=== PATIENT | male | born 1945 | race Caucasian/White ===

== ENCOUNTER 2023-09-24 08:48 | Emergency (ER) | payer OTHER, SELFPAY ==
[2023-09-24 08:49] VITALS: BMI 27.4
[2023-09-24 08:50] VITALS: BP 134/77
--- NOTE | 2023-09-24 10:12 | ED.GENMED ---
History of Present Illness
General
Chief Complaint: Abdominal Symptoms
Source: patient
Exam Limitations: none
Time Seen by Provider: 09/24/23 09:37
Nursing documentation reviewed up to this point in time: agreed with
Travel History
Have you had any contact with someone who has COVID-19?: No
Do you have any symptoms of coronavirus? Fever > 100 degrees, chills, cough, shortness of breath, sore throat, loss of taste or smell, muscle aches, or headache?: No
History of Present Illness
History of Present Illness:
78 y/o M with h/o CAD
h/o c diff last year after abx use, treated with flagyl 1 roudn and cleared
here with 2 epiosdes explosive diarrhea since yesterday reminding him of his c diff history
he had been taking cefdinir bid x 5 days (out of 7) for URI sxs
pt asys he stopped taking the abx yesterday when the diarrhea started
he took a dose of OTC antidiarrhea med earlier yesterdcay
he says he hasn't had an appetite or feeling thirsty so he hasn't been drinking
some subjective chills
no abdominal pain, rectal bleeding, vomiting.
Past History
Past History
ED Past Medical History: CAD, HTN and Hypercholesterolemia
ED Past Surgical History: Cardiac (Cardiac catheterization)
Social History
Tobacco: Former smoker
Alcohol: None
Drug: None
Personal:
Living: with family
Employment: Retired
Review of Systems
Review of Systems
Allergies reviewed?: Yes
All Other Systems: Not applicable
Phy Exam
Physical Exam
Physical Exam:
GENERAL: Alert , in no apparent distress
EYE: pupils equal and reactive
NECK: Supple
ENT: o/p clr, mmm.
CARDIAC: Regular rate and rhythm .
LUNGS: Clear breath sounds bilaterally, no acute respiratory distress, no wheezes/rales/rhonchi, occasional cough
ABDOMEN: Soft, without focal tenderness, no r/g, no cvat, normal bowel sounds
NEUROLOGICAL: Alert and oriented, no focal neuro deficits
SKIN: Warm and dry, skin intact.
MUSCULOSKELETAL: No edema, well perfused. neg shy's sign
PSYCH: Normal and appropriate interaction.
Course
Orders/Labs/Results
Orders:
Orders
09/24/23 10:08
0.9% Sodium Chloride 1000 ml [Nss] 1,000 ml IV BOLUS
09/24/23 10:45
Complete Blood Count/With Diff Urgent
Comprehensive Metabolic Panel Urgent
Lactic Acid Urgent
Magnesium Urgent
09/24/23 10:48
C DIFF [C difficile Antigen & Toxins] Urgent
PETRONA Source: Feces/Stool
Specimen Description:
Date Specimen was Collected: 09/24/23
Time Specimen was Collected: 10:43
Stool Culture Urgent
PETRONA Source: Feces/Stool
Specimen Description:
Date Specimen was Collected: 09/24/23
Time Specimen was Collected: 10:43
09/24/23 13:45
CR Chest - 2 Views Urgent
Comment:
Reason For Exam: cough
09/24/23 13:51
Vancomycin HCl [Firvanq] 125 mg PO NOW STA
Abnormal Lab Results
09/24/23
10:45
RBC 4.49 L 10^6/uL
(4.70-6.10)
MCH 31.6 H pg
(27.0-31.0)
Abs Immat Gran (auto) 0.1 H 10^3/uL
(0-0.05)
Absolute Neuts (auto) 8.5 H 10^3/uL
(1.4-6.5)
Absolute Lymphs (auto) 0.9 L 10^3/uL
(1.2-3.4)
Absolute Monos (auto) 0.9 H 10^3/uL
(0.1-0.6)
Neutrophils % 81.3 H %
(42.2-75.2)
Lymphocytes % 8.2 L %
(20.5-51.1)
Sodium 134 L mmol/L
(135-145)
Glucose 113 H mg/dl
(70-99)
Alkaline Phosphatase 171 H U/L
(38-126)
09/24/23 10:45
09/24/23 10:45
Vital Signs
Initial and Last Documented VS:
Initial Vital Signs
Temp Pulse Resp BP Pulse Ox
98.1 F 80 18 134/77 97
09/24/23 08:50 09/24/23 08:50 09/24/23 08:50 09/24/23 08:50 09/24/23 08:50
Last Documented Vital Signs
Temp Pulse Resp BP Pulse Ox
98.1 F 71 28 133/70 98
09/24/23 08:50 09/24/23 14:00 09/24/23 14:00 09/24/23 14:00 09/24/23 14:00
MDM/Problems Addressed
Differential Diagnosis Includes:
C. difficile, gastroenteritis, pneumonia
MDM/Problems Addressed:
78-year-old male with a history of C. difficile last year presents for diarrhea x 2 episodes since yesterday after being on 5 days of cefdinir for suspected sinus infection or bronchitis. Patient said he had a couple weeks of this cough brings up
some sputum and so his family doctor did prescribe cefdinir. He started having the diarrhea yesterday with 1 episode that was pretty explosive and then today had another 1. Patient says it reminds him of the C. difficile that he had last year. He
resolved with 10 days of Flagyl.
He has no residual abdominal pain, fevers or chills. He does have a dry cough here. On exam the patient had an occasional cough with a wheeze that cleared. There were no rales. His abdomen was soft and nontender. Patient was able to eventually
provide a stool sample, he only had 1 episode here which did test positive for C. difficile. Patient's electrolytes were otherwise okay. His white count is okay. He feels comfortable going home at and wants to try oral vancomycin this time as
this was a recurrent episode. I did do a chest x-ray to rule out pneumonia which was clear and independently reviewed by me. Offered patient albuterol as needed for wheezing, he did use to smoke. He will use otherwise [id number]-[id number] medications
for his cough
*Critical Care Note
Total Time (30-74mins, 75-104mins- exclusive of procedures): Not Applicable
ED Attending Note
-
Portions of this chart may have been created with voice recognition software.� Occasional wrong word or��sound alike� substitutions may have occurred due to the inherent limitations of voice recognition software.
Discharge Plan
Departure
Patient Disposition: Home (Routine Discharge)
Date of Disposition: 09/24/23
Time of Disposition: 14:35
Patient with high blood pressure during this ER visit?: No
Condition: Fair
Covid-19: Not Applicable
Discharge Problem:
C. difficile diarrhea
Instructions: Clostridioides difficile (DC)
Prescriptions:
New
vancomycin 125 mg capsule
125 mg PO QID Qty: 40 0RF
albuterol sulfate [Ventolin HFA] 90 mcg/actuation HFA aerosol inhaler
2 puff inhalation Q6H PRN (Reason: shortness of breath or wheezing) Qty: 6.7 0RF
No Action
amlodipine 2.5 MG tablet
2.5 mg PO DAILY
rosuvastatin [Crestor] 40 MG tablet
40 mg PO DAILY
nebivolol 2.5 MG tablet
2.5 mg PO DAILY
ticagrelor [Brilinta] 90 MG tablet
90 mg PO BID
multivitamin with folic acid [Tab-A-Martha] 1 TABLET tablet
1 tab PO DAILY
sennosides [senna] 1 TABLET tablet
2 tab PO BID 0RF
acetaminophen 325 MG tablet
650 mg PO Q4HPRN PRN (Reason: for mild pain or fever >100.4F) 0RF
aspirin 81 MG tablet,delayed release (DR/EC)
81 mg PO DAILY 0RF
magnesium hydroxide 30 ML suspension
30 ml PO DAILYPRN PRN (Reason: constipation) 0RF
docusate sodium 100 MG capsule
100 mg PO BID 0RF
oxycodone 5 MG tablet
1 - 2 tab PO Q4HPRN PRN (Reason: moderate pain) Qty: 80 0RF
tramadol 50 MG tablet
50 mg PO QID Qty: 80 0RF
Rx Instructions:
take 1 tab 4 x day x 7 days then every 4h as needed for pain
bisacodyl 5 MG tablet,delayed release (DR/EC)
10 mg PO DAILYPRN PRN (Reason: constipation ) Qty: 1 0RF
levofloxacin 500 MG tablet
500 mg PO DAILY Qty: 6 0RF
Referrals:
Marcelino Dougherty MD [Family Provider] - Follow up in 2-3 days
Activity Restrictions/Additional Instructions:
YOU TESTED POSITIVE FOR C DIFF
THIS IS VERY CONTAGIOUS
MAKE SURE TO ONLY USE 1 BATHROOM IN YOUR HOUSE AND WIPE WITH BLEACH TO CLEAN
TAKE VANCOMYCIN 1 TAB 4 TIMES A DAY FOR 10 DAYS
IF YOU ARE STILL HAVING DIARRHEA PLEASE SEE YOUR DOCTOR
STAY HYDRATED
RETURN FOR: SEVERE PAIN, FEVER, VOMITNIG, BLOODY STOOL, DEHYDERATION OR ANY CONCERNS.
YOUR CHEST XRAY SHOWED NO PNEUMONIA
YOU CAN TRY OVER THE COUTNER COUGH MEDICATION NEEDED FOR COUGH.
Interventions
Interventions:
*Risk Screen - Suicide Last Done: 09/24/23 08:55
*General Assessment Last Done: 09/24/23 08:55
*Neglect/Abuse Screening Last Done: 09/24/23 08:55
ED- Fall Risk Assessment Last Done: 09/24/23 11:22
*ED COVID-19 Vaccine History Last Done: 09/24/23 11:22
*Nursing Disposition Last Done: 09/24/23 15:30
QY-Cmcnzl-Earvyelsvq Assessment Last Done: 09/24/23 11:22
Discharge Date and Time
Discharge Date/Time: 09/24/23 15:32
Print Language: KAZAKH
[2023-09-24] MEDS: NSS 1000 IV (10:57)
[2023-09-24 11:00] VITALS: BP 130/78
[2023-09-24 11:07] LABS: % Basophils 0.7 % (0-2); % Eosinophils 0.8 % (0-6); % Immature Granulocytes 0.5 % (0-0.5); % Lymphocytes 8.2 % (20.5-51.1); % Monocytes 8.5 % (1.7-9.3); % Neutrophils 81.3 % (42.2-75.2); Absolute Basophils 0.1 10^3/uL (0-0.2); Absolute Eosinophils 0.1 10^3/uL (0-0.7); Absolute Immature Granulocytes 0.1 10^3/uL (0-0.05); Absolute Lymphocytes 0.9 10^3/uL (1.2-3.4); Absolute Monocytes 0.9 10^3/uL (0.1-0.6); Absolute Neutrophils 8.5 10^3/uL (1.4-6.5); Hematocrit 40.3 % (39.0-52.0); Hemoglobin 14.2 g/dL (13.0-18.0); Mean Corp Hgb Conc. 35.2 g/dL (33.0-37.0); Mean Corpuscular Hgb 31.6 pg (27.0-31.0); Mean Corpuscular Volume 89.8 fL (80.0-94.0); Mean Platelet Volume 8.3 fL (7.4-10.4); Nucleated Red Blood Cells % 0 % (-); Platelet Count 243 10^3/uL (130-400); Red Blood Cell Count 4.49 10^6/uL (4.70-6.10); Red Cell Dist. Width 12.4 % (11.5-14.5); White Blood Cell Count 10.5 10^3/uL (4.8-10.8)
[2023-09-24 11:34] LABS: Lactic Acid 1.2 mmol/L (0.7-2.0)
[2023-09-24 11:36] LABS: ALT (SGPT) 26 U/L (0-50); AST (SGOT) 28 U/L (17-59); Albumin 4.1 g/dl (3.5-5.0); Alkaline Phosphatase 171 U/L (38-126); Blood Urea Nitrogen 19 mg/dl (9-20); Calcium 9.3 mg/dl (8.4-10.2); Carbon Dioxide 22 mmol/L (22-30); Chloride 102 mmol/L (98-107); Estimated Creatinine Clearance 72 ml/min; Glucose 113 mg/dl (70-99); Magnesium 2.2 mg/dl (1.6-2.3); Potassium 3.7 mmol/L (3.5-5.1); Sodium 134 mmol/L (135-145); Total Bilirubin 0.7 mg/dl (0.2-1.3); Total Protein 6.8 g/dl (6.3-8.2); eGFR > 60.00
[2023-09-24 12:00] VITALS: BP 129/69
[2023-09-24 13:00] VITALS: BP 120/70
[2023-09-24 14:00] VITALS: BP 133/70
[2023-09-24] MEDS: FIRVANQ 125 MG PO (14:57)
== END 2023-09-24 15:32 | disposition home or self-care (01) ==
LOC: EMR 08:48
PROVIDERS: Physician Assistant; EMERGENCY PHYSICIAN Emergency Medicine; FAMILY PHYSICIAN Internal Medicine
DX: A04.72 Enterocolitis due to Clostridium difficile, not specified as recurrent (principal); R19.7 Diarrhea, unspecified; R05.9 Cough, unspecified; R06.2 Wheezing; I25.10 Atherosclerotic heart disease of native coronary artery without angina pectoris; I10 Essential (primary) hypertension; E78.00 Pure hypercholesterolemia, unspecified; Z87.891 Personal history of nicotine dependence; Z79.82 Long term (current) use of aspirin
CPT/HCPCS: 99284; 96360; 71046; 80053; 83605; 83735; 85025; 87045; 87046; 87324; 87427; 87449

== ENCOUNTER 2023-10-15 08:43 | Emergency (ER) | payer OTHER, MEDICARE, SELFPAY ==
[2023-10-15] VITALS (7 sets, daily range): BP systolic 99–143; BP diastolic 61–90; BMI 26.2
[2023-10-15 09:39] LABS: % Basophils 0.5 % (0-2); % Eosinophils 5.3 % (0-6); % Immature Granulocytes 0.3 % (0-0.5); % Lymphocytes 8.7 % (20.5-51.1); % Monocytes 10.3 % (1.7-9.3); % Neutrophils 74.9 % (42.2-75.2); Absolute Basophils 0.1 10^3/uL (0-0.2); Absolute Eosinophils 0.5 10^3/uL (0-0.7); Absolute Lymphocytes 0.8 10^3/uL (1.2-3.4); Absolute Monocytes 0.9 10^3/uL (0.1-0.6); Absolute Neutrophils 6.9 10^3/uL (1.4-6.5); Hematocrit 36.7 % (39.0-52.0); Mean Corp Hgb Conc. 35.4 g/dL (33.0-37.0); Mean Corpuscular Hgb 32.1 pg (27.0-31.0); Mean Corpuscular Volume 90.6 fL (80.0-94.0); Mean Platelet Volume 8.8 fL (7.4-10.4); Nucleated Red Blood Cells % 0 % (-); Platelet Count 188 10^3/uL (130-400); Red Blood Cell Count 4.05 10^6/uL (4.70-6.10); White Blood Cell Count 9.2 10^3/uL (4.8-10.8)
[2023-10-15] MEDS: NSS 1000 IV (09:39)
[2023-10-15 09:58] LABS: ALT (SGPT) 20 U/L (0-50); AST (SGOT) 25 U/L (17-59); Albumin 3.7 g/dl (3.5-5.0); Alkaline Phosphatase 135 U/L (38-126); Blood Urea Nitrogen 14 mg/dl (9-20); Calcium 8.6 mg/dl (8.4-10.2); Carbon Dioxide 21 mmol/L (22-30); Chloride 103 mmol/L (98-107); Estimated Creatinine Clearance 93 ml/min; Glucose 137 mg/dl (70-99); Potassium 3.6 mmol/L (3.5-5.1); Sodium 132 mmol/L (135-145); Total Bilirubin 0.8 mg/dl (0.2-1.3); Total Protein 6.2 g/dl (6.3-8.2); eGFR > 60.00
--- NOTE | 2023-10-15 10:12 | ED.GENMED ---
History of Present Illness
General
Chief Complaint: Abdominal Symptoms
Source: patient
Exam Limitations: none
Time Seen by Provider: 10/15/23 09:02
Nursing documentation reviewed up to this point in time: agreed with
Travel History
Have you had any contact with someone who has COVID-19?: No
Do you have any symptoms of coronavirus? Fever > 100 degrees, chills, cough, shortness of breath, sore throat, loss of taste or smell, muscle aches, or headache?: No
History of Present Illness
History of Present Illness:
Patient is a 78-year-old male who presents to the ER for evaluation. Patient was seen here September 23 for diarrhea and diagnosed with C. difficile. He completed vancomycin for 8 then stopped it symptoms improved however 4 days ago it started again.
Did have leftover vancomycin and started took 4 doses today of vancomycin Sunday took 3 doses and presented here to the ER for persistent diarrhea. He reports having 3-4 episodes of diarrhea per day but feels very weak and tired and wiped out. He
has no appetite and also not eating or drinking well. He denies any abdominal pain fever chills.
Past History
Past History
ED Past Medical History: CAD, HTN and Hypercholesterolemia
ED Past Surgical History: Cardiac (Cardiac catheterization)
Social History
Tobacco: Former smoker
Alcohol: None
Drug: None
Personal:
Living: with family
Employment: Retired
Review of Systems
Review of Systems
Allergies reviewed?: Yes
All Other Systems: ROS reviewed and negative except as documented in HPI and ROS
Constitutional: Reports fatigue; Denies fever or chills
EENT: Reports no symptoms
Respiratory: Reports no symptoms
ABD/GI: Reports diarrhea; Denies abdominal pain, nausea or vomiting
: Reports no symptoms
Skin: Reports no symptoms
Phy Exam
General Physical Exam
General Presentation: no apparent distress
General age: appears stated age
General Skin: warm and dry
General Habitus: normal
General Mental: alert
General Hydration: dry mucous membranes
Cardiovascular Exam
Cardiovascular Exam: regular rate/rhythm, no murmur and normal peripheral pulses
Pulmonary Exam
Pulmonary Exam: lungs clear and no respiratory distress
Neurological Exam
Neurological Exam: alert and oriented x3
Musculoskeletal Exam
Musculoskeletal Exam: full ROM
Skin Exam
Skin Exam: normal color and warm/dry
Psychiatric Exam
Psychiatric Exam: normal mood/affect
Course
Orders/Labs/Results
Orders:
Orders
10/15/23 09:05
IV Insert/Care/Rem.- Treatment PRN
10/15/23 09:14
Complete Blood Count/With Diff Urgent
Comprehensive Metabolic Panel Urgent
0.9% Sodium Chloride 1000 ml [Nss] 1,000 ml IV BOLUS
10/15/23 11:27
Consult Infectious Disease [INFECTIOUS DISEASE CONSULT] Urgent
Consulting Provider: Julieta Smith
Was physician already notified: Yes
Reason for consult: eval /treat for c diff
10/15/23 12:30
Vancomycin HCl [Firvanq] 125 mg PO Q6
10/15/23 12:50
C DIFF [C difficile Antigen & Toxins] Stat
PETRONA Source: Feces/Stool
Specimen Description:
Date Specimen was Collected: 10/15/23
Time Specimen was Collected: 12:48
Abnormal Lab Results
10/15/23
09:14
RBC 4.05 L 10^6/uL
(4.70-6.10)
Hct 36.7 L %
(39.0-52.0)
MCH 32.1 H pg
(27.0-31.0)
Absolute Neuts (auto) 6.9 H 10^3/uL
(1.4-6.5)
Absolute Lymphs (auto) 0.8 L 10^3/uL
(1.2-3.4)
Absolute Monos (auto) 0.9 H 10^3/uL
(0.1-0.6)
Lymphocytes % 8.7 L %
(20.5-51.1)
Monocytes % 10.3 H %
(1.7-9.3)
Sodium 132 L mmol/L
(135-145)
Carbon Dioxide 21 L mmol/L
(22-30)
Glucose 137 H mg/dl
(70-99)
Alkaline Phosphatase 135 H U/L
(38-126)
Total Protein 6.2 L g/dl
(6.3-8.2)
10/15/23 09:14
10/15/23 09:14
Vital Signs
Initial and Last Documented VS:
Initial Vital Signs
Temp Pulse Resp BP Pulse Ox
99.0 F 91 16 143/90 98
10/15/23 08:52 10/15/23 08:52 10/15/23 08:52 10/15/23 08:52 10/15/23 08:52
Last Documented Vital Signs
Temp Pulse Resp BP Pulse Ox
99.0 F 71 16 119/72 99
10/15/23 08:52 10/15/23 14:00 10/15/23 14:00 10/15/23 14:00 10/15/23 14:00
Market Research Intern consulted with Physician
Market Research Intern consulted with physician?: Yes
Name of Physician Consulted: Dexter
MDM/Problems Addressed
Differential Diagnosis Includes:
Not limited to diarrhea C. difficile dehydration electrolyte abnormality
MDM/Problems Addressed:
Patient is a 70-year-old male who was seen here September 23 diagnosed with C. difficile completed 8 days of vancomycin symptoms improved. Symptoms restarted again 3 days ago . He had leftover vancomycin at home he took 4 doses Sunday, 3
doses yesterday none today. He complains today of feeling very fatigued and weak which is a prompted him to come to the ER. He presents awake alert no acute distress no complaints abdominal pain abdomen soft nontender appears mildly dry on
exam.pt was given fluids. Labs checked and unremarkable.
Patient was evaluated by infectious disease stool specimen positive for C. difficile and patient was treated with vancomycin sent as an outpatient.
*Pulse Oximetry
Patient hypoxic: no
*Critical Care Note
Total Time (30-74mins, 75-104mins- exclusive of procedures): Not Applicable
Patient Management
Discussion with other providers: Electric Lift Truck Driver (Infectious disease)
ED Attending Note
-
Portions of this chart may have been created with voice recognition software.� Occasional wrong word or��sound alike� substitutions may have occurred due to the inherent limitations of voice recognition software.
Discharge Plan
Departure
Patient Disposition: Home (Routine Discharge)
Date of Disposition: 10/15/23
Time of Disposition: 14:35
Patient with high blood pressure during this ER visit?: Yes
Condition: Fair
Covid-19: Not Applicable
Discharge Problem:
C. difficile diarrhea
Prescriptions:
New
vancomycin [Vancocin] 125 mg capsule
125 mg PO QID Qty: 40 0RF
No Action
amlodipine 2.5 MG tablet
2.5 mg PO DAILY
rosuvastatin [Crestor] 40 MG tablet
40 mg PO DAILY
acetaminophen 325 MG tablet
650 mg PO Q4HPRN PRN (Reason: for mild pain or fever >100.4F) 0RF
trazodone 50 mg Tablet
50 mg PO HS
loperamide 2 mg Tablet
2 mg PO Q4HPRN PRN (Reason: diarrhea)
metoprolol succinate [Toprol XL] 25 mg Tablet Extended Release 24 Hr
25 mg PO DAILY
Referrals:
Marcelino Dougherty MD [Family Provider] -
Julieta Smith MD [Active] -
Activity Restrictions/Additional Instructions:
As discussed a prescription for vancomycin was sent to your pharmacy. You may stop loperamide and take probiotics if you wish. You can eat what ever you would like when your appetite comes back it is recommended that you resume eating fruits and
vegetables and increase fluid with some salt sugar such as broth and Pedialyte. Follow-up with your family doctor next several days as well as following up with infectious disease.
Return if any worsening of symptoms of lightheaded dizziness abdominal pain fever chills
Interventions
Interventions:
*Risk Screen - Suicide Last Done: 10/15/23 09:20
*General Assessment Last Done: 10/15/23 09:20
*Neglect/Abuse Screening Last Done: 10/15/23 09:20
ED- Fall Risk Assessment Last Done: 10/15/23 09:20
*ED COVID-19 Vaccine History Last Done: 10/15/23 08:52
*Nursing Disposition Last Done: 10/15/23 14:42
QI-Ledcuv-Atrxkxazft Assessment Last Done: 10/15/23 09:20
Discharge Date and Time
Discharge Date/Time: 10/15/23 14:43
Print Language: PALESTINIAN
--- NOTE | 2023-10-15 11:24 | CON.ID ---
Addendum entered and electronically signed by Julieta Smith MD 10/15/23 15:37:
C diff remains positive, will proceed with requesting vowst
Original Note:
Consultation
-
Date/Time Consultation Requested: 10/15/23 11:10
Date/Time Consultation Performed: 10/15/23 11:27
Requesting Provider: Leah Glass NP
Performing Provider: Dr Smith
Reason for Consultation: probable recurrent C diff
Chief Complaint / Past History
Chief Complaint
diarrhea, weakness
History of Present Illness
Mr Ward is a 78 year old male with history notable for C difficile patient report first episode was 2022 treated with metronidazole x1, then developed URI last month and started cefdinir, on 09/24/23 developed explosive diarrhea x2, poor
appetite. Diagnosed with C difficile and treated with oral vancomycin x10 days which he took x8 days. Then around 10/10 developed a relapse of diarrhea, wekaness, malaise, poor appetite. Started the left over vancomycin and then presented to the
ER. No fevers, chills or abdominal pain.
Since arrival here tmax 100.0 orally - no abram fevers, bp mildly hypotensive this AM, wbc 9.2, hgb 13, plt 188, no left shift, cr 0.7, no imaging done, C diff not yet tested this visit - C diff ag/toxin positive 09/23, ID is consulted for assistance
with management.
Past History
Additional Past Medical History:
CAD, HTN and Hypercholesterolemia
Additional Past Surgical History:
Cardiac catheterization
Allergy History:
No Known Allergies Allergy (Verified 10/15/23 08:55)
Medications Reviewed: Yes
Social History
Tobacco: Former Smoker
Alcohol: None
Drug: None
Family History
Family History: Not Pertinent
Review of Systems
Review of Systems
General: Change in Appetite; Negative Fever or Chills
All systems: All other systems were reviewed and were negative
Vital Signs
Temp Pulse Resp BP Pulse Ox
99.0 F 82 16 99/61 100
10/15/23 08:52 10/15/23 10:21 10/15/23 10:21 10/15/23 10:21 10/15/23 10:21
Physical Exam
Physical Exam
Constitutional: No Acute Distress and Non-toxic
Cardiovascular: Regular Rate and S1/S2; Negative Murmur or Rub
Pulmonary: Clear and Symmetric; Negative Wheezes, Rales or Rhonchi
Gastrointestinal: Soft, Tender (minimal diffuse tenderness), Non Distended and Other (hyperactive bowel sounds)
Skin: Warm, Dry and Other (tenting); Negative Rash or Jaundice
Lab / Diagnostic Study Results
10/15/23 09:14
10/15/23 09:14
Abs Immat Gran (auto) 0.0 10^3/uL (0-0.05) 10/15/23 09:14
Absolute Neuts (auto) 6.9 10^3/uL (1.4-6.5) H 10/15/23 09:14
Absolute Lymphs (auto) 0.8 10^3/uL (1.2-3.4) L 10/15/23 09:14
Absolute Monos (auto) 0.9 10^3/uL (0.1-0.6) H 10/15/23 09:14
Absolute Basos (auto) 0.1 10^3/uL (0-0.2) 10/15/23 09:14
Immature Gran % 0.3 % (0-0.5) 10/15/23 09:14
Neutrophils % 74.9 % (42.2-75.2) 10/15/23 09:14
Lymphocytes % 8.7 % (20.5-51.1) L 10/15/23 09:14
Monocytes % 10.3 % (1.7-9.3) H 10/15/23 09:14
Eosinophils % 5.3 % (0-6) 10/15/23 09:14
Basophils % 0.5 % (0-2) 10/15/23 09:14
Assessment / Plan
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
Dehydration
- if C diff remains positive then patient would be a candidate for oral fecal transplant
- would be 3rd episode of C difficile
- my office can assist with setting this up
- recommend retesting for C difficile now
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
- reasonable to plan to obtain testing and then discharge with a 10 day course of oral vancomycin (favor vancomycin over fidaxomicin given cost, plans for transplant)
- stop loperamide at this time, can take probiotics if he wishes
- can eat whatever he wishes, when appetite back would resume eating fruits/vegetables; would increase fluid with some salt/sugar - broth/pedialyte etc
- follow up with PCP, follow up with ID PRN
--- NOTE | 2023-10-15 11:44 | EDRN ---
Infectious disease MD in w/ pt at this time.
[2023-10-15] MEDS: FIRVANQ 125 MG PO (14:12)
== END 2023-10-15 14:43 | disposition home or self-care (01) ==
LOC: EMR 08:43
PROVIDERS: Nurse Practitioner; CONSULT PHYSICIAN Student in an Organized Health Care Education/Training Program; EMERGENCY PHYSICIAN Emergency Medicine; FAMILY PHYSICIAN Internal Medicine
DX: A04.72 Enterocolitis due to Clostridium difficile, not specified as recurrent (principal); Z87.891 Personal history of nicotine dependence
CPT/HCPCS: 99284; 96360; 80053; 85025; 87324; 87449

== ENCOUNTER → 2025-01-27 07:58 | Outpatient (REF) | payer MEDICARE, OTHER, SELFPAY | LOC: WOUND 07:58 | PROVIDERS: ATTENDING PHYSICIAN Surgery; FAMILY PHYSICIAN Internal Medicine | DX: S51.801A Unspecified open wound of right forearm, initial encounter (principal); S51.802A Unspecified open wound of left forearm, initial encounter; I25.10 Atherosclerotic heart disease of native coronary artery without angina pectoris; Z79.01 Long term (current) use of anticoagulants; Z79.52 Long term (current) use of systemic steroids; X58.XXXA Exposure to other specified factors, initial encounter | CPT/HCPCS: 99203 ==

== ENCOUNTER 2025-02-13 11:32 | Emergency (ER) | payer MEDICARE, OTHER, SELFPAY ==
[2025-02-13 11:35] VITALS: BP 168/99
[2025-02-13 12:01] VITALS: BP 155/87
[2025-02-13 12:02] VITALS: BP 155/87
--- NOTE | 2025-02-13 12:10 | ED.GENMED ---
History of Present Illness
General
Chief Complaint: Cardiac Symptoms
Source: patient
Exam Limitations: none
Time Seen by Provider: 02/13/25 11:56
Nursing documentation reviewed up to this point in time: agreed with
History of Present Illness
History of Present Illness:
79-year-old male with a past medical history of hypertension, hyperlipidemia, CAD status post CABG (October 2024, [facility] with Dr. Fernández as his primary riveter), paroxysmal A-fib (previously on Eliquis) who presents to the emergency
department for evaluation after an episode of atrial fibrillation. Patient reports that he has been doing cardiac rehab after his recent CABG. Today he was at rehab and noted to have an episode of atrial fibrillation. He says he had some
palpitations 'like a butterfly my chest' transiently but they since have resolved. He never had any chest pain, dizziness, shortness of breath. He is completely asymptomatic in the emergency room. He says that he previously had been on Eliquis
but recently was changed from Eliquis to Plavix due to issues with bruising.
Past History
Past History
ED Past Medical History: CAD, HTN and Hypercholesterolemia
ED Past Surgical History: Cardiac (Cardiac catheterization)
Social History
Tobacco: Former smoker
Alcohol: None
Drug: None
Personal:
Living: with family
Employment: Retired
Review of Systems
Review of Systems
All Other Systems: ROS reviewed and negative except as documented in HPI and ROS
Constitutional: Denies fever or chills
Respiratory: Denies trouble breathing
Cardiac: Reports palpitations; Denies chest pain or syncope
ABD/GI: Denies abdominal pain
Musculoskeletal: Denies edema
Neurological: Denies dizzy or headache
Phy Exam
Physical Exam
Physical Exam:
General: Awake, alert, oriented x3; no acute distress
Head: Normocephalic, atraumatic
Eyes: Conjunctiva normal
Throat: Airway intact, handling secretions
Neck: Trachea midline, no JVD
Lungs: Clear to auscultation bilaterally, no wheezing, rales, rhonchi
Heart: Regular rate and rhythm, no murmurs, gallops, or rubs appreciated; well-healed sternotomy scar
Neuro: Grossly intact
Extremities: No edema in extremities, equal pulses in all extremities
Scores
Heart Failure Risk
Heart Failure Risk Score: Not Applicable
Heart Score for Chest Pain Patients
STEMI patient?: Not applicable
Withdrawal Assessment of Alcohol
Withdrawal Assessment Completed?: Not applicable
Course
Orders/Labs/Results
Orders:
Orders
02/13/25 11:38
EKG [Electrocardiogram (*1)] Urgent
Reason for Study: Abnormal EKG
02/13/25 11:39
EKG- Treatment ONCE
02/13/25 12:04
EKG [Electrocardiogram (*1)] Urgent
Reason for Study: Atrial Fibrillation
EKG- Treatment ONCE
02/13/25 12:15
Basic Metabolic Panel Urgent
Complete Blood Count/No Diff Urgent
Abnormal Lab Results
02/13/25
12:15
WBC 11.1 H 10^3/uL
(4.8-10.8)
RBC 4.57 L 10^6/uL
(4.70-6.10)
Plt Count 21 L* 10^3/uL
(130-400)
Creatinine 0.6 L mg/dL
(0.7-1.3)
Glucose 110 H mg/dl
(70-99)
02/13/25 12:15
02/13/25 12:15
Vital Signs
Initial and Last Documented VS:
Initial Vital Signs
Pulse Resp BP Pulse Ox
80 20 168/99 100
02/13/25 11:35 02/13/25 11:35 02/13/25 11:35 02/13/25 11:35
Last Documented Vital Signs
Pulse Resp BP Pulse Ox
110 27 113/100 99
02/13/25 12:51 02/13/25 12:51 02/13/25 12:51 02/13/25 12:51
MDM/Problems Addressed
Differential Diagnosis Includes:
Atrial fibrillation
MDM/Problems Addressed:
79-year-old male with a history as noted presents after an episode of atrial fibrillation at rehab. He had transient palpitations but they since have resolved. His EKG here shows sinus rhythm�he appears to converted back to normal rhythm.
Hypertensive otherwise normal vitals. He was recently changed from Eliquis to Plavix in consultation with his riveter. Given this repeat episode of A-fib at rehab today I wonder if changing back to Eliquis is indicated. Will discuss with his
primary riveter regarding medication adjustments. Send off basic labs to rule out electrolyte derangement or anemia.
I spoke with the patient's riveter at [facility] about medications�it sounds like he recently had discontinued Eliquis and patient has been on aspirin and Plavix. Also apparently switched recently from metoprolol to amlodipine. His riveter
recommending that patient stop aspirin but continue Plavix and initiate treatment with Eliquis once again at a dose of 5 mg twice daily. Also recommending discontinuing amlodipine in favor of Toprol 50 mg daily. Discussed this with the patient and
he is in agreement, wishes to be discharged and will follow-up as an outpatient.
Screening labs returned back and reviewed�CB was significant for marked thrombocytopenia. Patient initially discharged to follow-up outpatient with medication plan as discussed with his riveter above. Given this finding I placed a call to
patient and explained that his platelets are very low and we will likely need to make an adjustment to his blood thinner. I then spoke with his riveter again who recommended discontinuing all anticoagulation (aspirin, Plavix, and Eliquis). I
spoke to his primary care physician office (Dr. Marcelino Dougherty) to ensure follow-up for workup of his thrombocytopenia. Updated patient on this plan and he verbalized understanding and was very appreciative.
Chronic conditions affecting care:
A-fib, CAD
*Pulse Oximetry
SaO2: 100
Oxygen Mode of Delivery: Room air
Patient hypoxic: no (100%)
*EKG
Interpreted by ED Provider?: Yes
Heart Rate: 69
Rate: normal
Rhythm: sinus and PAC's
[place]: normal axis
Interval: normal interval
QRS Pattern: normal QRS
Ischemia: T-wave inversion (Lateral T wave inversions)
*Critical Care Note
Total Time (30-74mins, 75-104mins- exclusive of procedures): Not Applicable
Data Reviewed
Source: patient and records
Patient Management
Discussion with other providers: Book Packer (Discussed with patient's primary cardiology team)
ED Attending Note
-
Portions of this chart may have been created with voice recognition software.� Occasional wrong word or��sound alike� substitutions may have occurred due to the inherent limitations of voice recognition software.
Discharge Plan
Departure
Patient Disposition: Home (Routine Discharge)
Date of Disposition: 02/13/25
Time of Disposition: 12:32
Patient with high blood pressure during this ER visit?: Yes
Discharge Problem:
Atrial fibrillation
Instructions: Atrial fibrillation (DC)
Prescriptions:
New
metoprolol succinate [Toprol XL] 50 mg tablet extended release 24 hr
50 mg PO DAILY Qty: 30 0RF
Eliquis 5 mg tablet
5 mg PO BID Qty: 60 0RF
Discontinued
amlodipine 2.5 MG tablet
2.5 mg PO DAILY
metoprolol succinate [Toprol XL] 25 mg Tablet Extended Release 24 Hr
25 mg PO DAILY
No Action
rosuvastatin [Crestor] 40 MG tablet
40 mg PO DAILY
acetaminophen 325 MG tablet
650 mg PO Q4HPRN PRN (Reason: for mild pain or fever >100.4F) 0RF
trazodone 50 mg Tablet
50 mg PO HS
loperamide 2 mg Tablet
2 mg PO Q4HPRN PRN (Reason: diarrhea)
vancomycin [Vancocin] 125 mg capsule
125 mg PO QID Qty: 40 0RF
Referrals:
Artis Fernández MD [Non-Admitting Privileges, Cardiology] - Call in 1-3 days for appt
Activity Restrictions/Additional Instructions:
You should follow-up with your primary riveter as we discussed. You should make the following medication adjustments as per your riveter:
You should discontinue:
- Aspirin
- Amlodipine
You should start taking:
- Eliquis (5 mg twice a day)
�Metoprolol XL (50 mg once daily)
You can continue taking the rest of your medications including your Plavix
Thank you for visiting the Emergency Department at [facility].
1. Please schedule a follow up appointment as directed. Call first thing tomorrow morning to make an appointment.
2. If indicated, please take your medications as instructed and indicated on discharge paperwork.
3. If any of your symptoms do not improve, or persist, or become more severe within 6-12 hours, please return to the emergency department for further care.
4. Please return to the emergency department if you develop a headache, neck pain/stiffness, fever greater than 100.4F, chest pain, shortness of breath, persistent nausea, vomiting, slurred speech, difficulty walking, numbness/tingling, weakness,
signs of infection or any other symptoms that are worrisome to you.
Please call [phone] if you have any questions.
Interventions
Interventions:
*Risk Screen - Suicide Last Done: 02/13/25 11:35
*General Assessment Last Done: 02/13/25 11:35
*Neglect/Abuse Screening Last Done: 02/13/25 11:35
*ED- Fall Risk Assessment Last Done: 02/13/25 11:57
*ED COVID-19 Vaccine History Last Done: 02/13/25 11:57
*Nursing Disposition Last Done: 02/13/25 12:56
ED- Pulmonary Assessment Last Done: 02/13/25 11:57
ED- Cardiac Assessment Last Done: 02/13/25 11:57
Discharge Date and Time
Discharge Date/Time: 02/13/25 12:57
Print Language: HONG KONGER
[2025-02-13 12:45] LABS: Blood Urea Nitrogen 16 mg/dl (9-20); Calcium 9.3 mg/dl (8.4-10.2); Carbon Dioxide 22 mmol/L (22-30); Chloride 107 mmol/L (98-107); Glucose 110 mg/dl (70-99); Potassium 4.0 mmol/L (3.5-5.1); Sodium 138 mmol/L (135-145); eGFR > 60.00
[2025-02-13 12:50] LABS: Hematocrit 40.1 % (39.0-52.0); Hemoglobin 13.3 g/dL (13.0-18.0); Mean Corp Hgb Conc. 33.2 g/dL (33.0-37.0); Mean Corpuscular Volume 87.7 fL (80.0-94.0); Red Cell Dist. Width 14.4 % (11.5-14.5)
[2025-02-13 12:51] VITALS: BP 113/100
[2025-02-13 13:17] LABS: Platelet Count 21 10^3/uL (130-400)
== END 2025-02-13 12:57 | disposition home or self-care (01) ==
LOC: EMR 11:32
PROVIDERS: EMERGENCY PHYSICIAN Emergency Medicine; FAMILY PHYSICIAN Internal Medicine
DX: I48.91 Unspecified atrial fibrillation (principal); D69.6 Thrombocytopenia, unspecified; E78.00 Pure hypercholesterolemia, unspecified; I10 Essential (primary) hypertension; I25.10 Atherosclerotic heart disease of native coronary artery without angina pectoris; Z79.02 Long term (current) use of antithrombotics/antiplatelets; Z87.891 Personal history of nicotine dependence; Z95.1 Presence of aortocoronary bypass graft
CPT/HCPCS: 99284; 80048; 85027; 93005

== ENCOUNTER 2025-02-13 11:52 | Outpatient (RCR) | payer MEDICARE, OTHER, SELFPAY | END 2025-02-13 23:59 | disposition home or self-care (01) | LOC: CRHB 11:52 | PROVIDERS: ATTENDING PHYSICIAN Internal Medicine Cardiovascular Disease | DX: Z95.1 Presence of aortocoronary bypass graft (principal) | CPT/HCPCS: G0422; G0423 ==